=== PATIENT | female | born 1950 | race Caucasian/White ===

== ENCOUNTER 2016-10-24 10:37 | Observation (INO) | payer MEDICARE, OTHER ==
[~2016-10-24] VITALS: Ht 172.7 cm; Wt 112.1 kg
[~2016-10-24 10:37] MED LIST: ACET325T51 PO; ASCO250T7 PO; CYAN500 PO; FURO40TA4 PO; GLPZ5T PO; HYDR-656 PO; LACT10SO27 PO; MAGN400T4 PO; METF1000 PO; METO5TAB5 PO; MULT1CAP33 PO; OMEP20CA11 PO; POTA20TA16 PO; RIFA550T3 PO; SPIR100T3 PO
[2016-10-24 10:41] VITALS: BP 115/60; PULSE 87; RESP 22; O2SAT 99
--- NOTE | 2016-10-24 11:04 | ED.REPORT ---
HPI-General Illness Date of Service Oct 24, 2016 ED Provider: Ethan Patton MD The patient is a 66 year old female with history of pancytopenia, hepatic encephalopathy, obesity, cirrhosis, gastric antral venous ectasia with associated chronic GI bleeding, s/p bowel resection, diabetes mellitus, hypertension, who presents to the emergency department complaining of dizziness that began this morning. The patient states that this is one of her "trigger points" that tells her to come to the hospital. Her family states that her skin is a different color than normal. She denies bloody/tarry stools, hematemesis, diarrhea, vomiting, nausea, chills, fever, chest pain or shortness of breath. Her gastric antral venous ectasia is not manageable with TIP, failed octreotide treatment, the only treatment that she gets is periodic blood transfusions. Her warehouse associate is Dr. Levin. Nursing Notes Stated Complaint: DIZZY,SOB Chief Complaint: General Complaint Nursing Notes Reviewed: Yes Allergies: Coded Allergies: bacitracin (Verified Allergy, Unknown, UNKNOWN, 07/02/16) TAPE (Verified Adverse Reaction, Severe, ITCHING, 07/02/16) latex (Verified Adverse Reaction, Severe, SKIN REACTION/ITCHING, 07/02/16) Scheduled Ascorbic Acid (Vitamin C) 250 Mg Tab.chew 250 MG PO DAILY Cyanocobalamin (Vitamin B12) 500 Mcg Tablet 1,000 MCG PO DAILY Furosemide (Furosemide) 40 Mg Tablet 40 MG PO DAILY Glipizide (Glipizide) 5 Mg Tablet 5 MG PO DAILY Lactulose (Lactulose) 10 Gm/15 Ml Solution 15 GM PO prn Magnesium Oxide (Magnesium Oxide) 400 Mg Tablet 400 MG PO BID Metformin (Glucophage) 1,000 Mg Tablet 1,000 MG PO BID Metolazone (Metolazone) 5 Mg Tablet 5 MG PO DAILY Multivitamin (Multivitamins) 1 Each Capsule 1 EACH PO DAILY Omeprazole (Omeprazole) 20 Mg Capsule.dr 20 MG PO BID Potassium Chloride (Potassium Chloride) 20 Meq Tab.er.prt 20 MEQ PO DAILY TAKE WITH FOOD Rifaximin (Xifaxan) 550 Mg Tablet 550 MG PO BID Spironolactone (Spironolactone) 100 Mg Tablet 100 MG PO DAILY Scheduled PRN Acetaminophen (Acetaminophen) 325 Mg Tablet 325 MG PO Q4H PRN PRN For Pain hydrOXYzine Hcl (HydrOXYzine Hcl) 25 Mg Tablet 25 MG PO TID PRN PRN For Itching General Time Seen by MD: 11:03 Chief Complaint Dizziness Hx Obtained From: Patient Arrived By: Walk-in Sudden in Onset?: Yes Onset Occurred: 5 - 8 hours ago Symptom Duration: Since onset Severity: Current: No pain currently Severity: Maximum: No pain Recent Healthcare: No recent doctor visit, No recent hospitalization Similar Sx Previous: Yes Past Medical History Past Medical History Notes: PCP: Dr. Restrepo Water Attendant Dr Levin Past Medical History Anemia - recurrent transfusions (" two transfusions per week") Cirrhosis by hepatic steatosis Gastric Antral Vascular Ectasia (GAVE) Heart murmur Pancytopenia Obstructive sleep apnea Hepatic encephalopathy Reports: Diabetes mellitus, Hypertension Past Surgical History Deviated septum repair TIPS procedure D&C for polyp EGD 04/27/2015 revealed grade 1 esophageal varices, gastropathy, gastric antralvenous ectasia, Colonoscopy 04/27/2015 revealed: Colon polyps, diverticulosis, hemorrhoids with repeat colonoscopy in 3 years recommended liver stent Reports: Tonsillectomy Family History Noncontributory Smoking History Never Smoker Social History Alcohol Use: Denies alcohol use Drug Use: Denies drug use Other Social History: Good social support, Local resident Ambulatory Status Independent Review of Systems +pallor Full Review of Systems Constitutional: Reports: Fatigue, Weakness - generalized, Denies: Chills, Fever Respiratory: Denies: Non-productive cough, Shortness of breath Cardiovascular: Denies: Chest pain GI: Denies: Abdominal pain, Bloody/tarry stool, Diarrhea, Hematemesis, Hematochezia, Melena, Nausea, Vomiting Female: Denies: Hematuria Neurologic: Reports: Dizziness, Lightheaded, Spinning sensation Complete sys rev & neg: except as marked. Physical Exam Vital Signs Vital Signs Date Time Temp Pulse Resp B/P Pulse Ox O2 Delivery O2 Flow Rate FiO2 10/24/16 10:41 36.1 87 22 115/60 99 Initial VS: Reviewed ENT: Mucous membranes moist, Conjunctiva normal, No scleral icterus Neck: Supple, Non-tender, Full range of motion Respiratory: Breath sounds normal, Clear to auscultation, No respiratory distress Abdomen / GI: Soft, Non-tender, No guarding, No rebound, No distention Lymphatic: No lymphadenopathy Extremities: Vascular intact, Neuro intact, No swelling, No tenderness Skin: Warm, Dry, No cyanosis Neurologic: Alert, Oriented, Nonfocal Psychiatric: Mood/affect normal, Behavior normal, Normal thought content General/Constitutional: Awake, Alert Appearance / Presentation: Positive: Pale Head / Eyes: Normocephalic, PERRL, EOMI Conjunctiva / Sclera: Positive: Pallor Cardiovascular: Heart rate NL, Regular rhythm Heart Sounds / Murmur: Positive: Systolic murmur present.. (III/) Rectum / Perineum: Atraumatic, No gross blood Rectal for Blood: Positive: Blood - occult heme + Lakisha RN chaperoned the exam. No stool in the rectal vault. Interpretation & Diagnostics Lab Results Interpretation Result Diagram: 10/24/16 1235 10/24/16 1235 Test 10/24/16 12:35 White Blood Count 2.8th/mm3 (3.8-10.1) Red Blood Count 2.50mil/mm3 (3.90-5.20) Hemoglobin 6.3g/dL (12.0-15.6) Hematocrit 20.5% (35.0-46.0) Mean Corpuscular Volume 82.0fL (81-100) Mean Corpuscular Hemoglobin 25.2pg (27.0-35.0) Mean Corpuscular Hemoglobin Concent 30.7% (32.0-37.0) Red Cell Distribution Width 16.8% (12.3-15.4) Platelet Count 80bil/L (150-400) Neutrophils (%) (Auto) 79.7% (40-74) Lymphocytes (%) (Auto) 8.3% (14-46) Monocytes (%) (Auto) 9.4% (4-12) Eosinophils (%) (Auto) 1.8% (0-5) Basophils (%) (Auto) 0.4% (0-3) Prothrombin Time 11.8sec (8.1-12.5) Prothromb Time International Ratio 1.10ratio Sodium Level 129mEq/L (134-144) Potassium Level 4.3mEq/L (3.5-5.2) Chloride Level 94mEq/L (97-108) Carbon Dioxide Level 22mmol/L (18-29) Blood Urea Nitrogen 21mg/dL (8-27) Creatinine 0.81mg/dL (0.57-1.00) Estimat Glomerular Filtration Rate 102mL/min (>59) Glucose Level 625mg/dL (60-99) Calcium Level 9.3mg/dL (8.5-10.1) Total Bilirubin 0.7mg/dL (0.0-1.2) Aspartate Amino Transf (AST/SGOT) 16U/L (0-50) Alanine Aminotransferase (ALT/SGPT) 17U/L (0-32) Alkaline Phosphatase 133U/L (25-165) Ammonia 144ug/dL (18-53) Total Protein 5.8g/dL (6.4-8.4) Albumin 3.0g/dL (3.4-5.0) Re-Eval/Medical Decision Source of Hx: Old records, Family Time of Eval: 13:25 Re-Evaluation/Progress Note: Discussed lab results. Completed rectal exam. Time of Eval: 13:28 Re-Evaluation/Progress Note: Discussed need for admission. All questions were addressed. Time of Eval: 13:39 Re-Evaluation/Progress Note: Discussed blood sugar level results and what her normal treatment would be. Consultation #1: Referral / Consult Name: Johnny Bautista MD Call Returned at: 13:30 Supervisor Paper Machine: Will see patient Note: Spoke with the on-call dairy cattle farmer. Consultation #2: Referral / Consult Name: César Guy MD Consulted With: Hospitalist Requested Call at: 13:39 Call Returned at: 14:43 Supervisor Paper Machine: Will see patient, Agrees with eval, Agrees with plan, Accepts admit Counseled Regarding: Diagnosis, Lab results, Need for admission Discharge & Departure Primary Impression: Symptomatic anemia Additional Impression: Hyperglycemia Disposition: ADMITTED TO HOSPITAL Discharge Condition All VS Reviewed: Yes Condition: Stable Referrals: Zechariah Restrepo MD (PCP) Kaylynn Attestation Portions of this note were transcribed by Viviana Hsieh. I, Dr. Ethan Patton personally performed the history, physical exam and medical decision-making; I reviewed and confirmed the accuracy of the information in the transcribed note. Signed by: Kaylynn White, 10/24/2016 and [id number]. copies to: Zechariah Restrepo MD, Kirk H MD Oct 24, 2016 11:04 Viviana Hsieh Oct 24, 2016 11:12
[2016-10-24 12:45] LABS: BASOPHILS % (AUTO) 0.4 % (0-3); EOSINOPHILS % (AUTO) 1.8 % (0-5); MONOCYTES % (AUTO) 9.4 % (4-12); Mean Corpuscular Hemoglobin 25.2 pg (27.0-35.0); NEUTROPHILS % (AUTO) 79.7 % (40-74); Platelet Count 80 bil/L (150-400)
[2016-10-24 13:09] LABS: INR 1.1 ratio
[2016-10-24] MEDS ORDERED: Insulin Human REGular 300 Unit/3 mL Inj SUBQ ONE (13:40)
[2016-10-24] MEDS ORDERED: 0.9% Sodium Chloride 1,000 ML IV ONE (13:40)
[2016-10-24] MEDS: 0.9% Sodium Chloride 1,000 ML IV SCH (14:48)
[2016-10-24] MEDS ORDERED: Alum-Mag Hydrox-Simeth 30 mL Suspension PO PRN (14:50)
[2016-10-24] MEDS ORDERED: Ondansetron 2 mg/mL 2 mL Inj IVPUSH PRN (14:50)
[2016-10-24 15:35] VITALS: BP 106/65; PULSE 89; RESP 18; O2SAT 100
[2016-10-24] MEDS ORDERED: 0.9% Sodium Chloride 250 ML IV SCH (15:50)
[2016-10-24] MEDS ORDERED: Glucose 40% Oral Gel 15 Gm Tube PO PRN (16:00)
[2016-10-24 17:01] VITALS: BP 119/62; PULSE 90; RESP 20
--- NOTE | 2016-10-24 17:01 | PCM.HPMED ---
Subjective Date of Service Oct 24, 2016 Primary Provider: Admitting Physician: César Guy MD Primary Care Physician: Zechariah Restrepo MD Attending Physician: César Guy MD Chief Complaint: dizziness, shortness of breath History of Present Illness: 66 year old female with history of pancytopenia, hepatic encephalopathy, obesity , cirrhosis, gastric antral venous ectasia with associated chronic GI bleeding, s/p bowel resection, diabetes mellitus, hypertension presented to ED with c/o dizziness and shortness of breath. She denies bloody/tarry stools, hematemesis, diarrhea, vomiting, nausea, chills, fever, chest pain. She is following with Dr Levin. Her gastric antral venous ectasia is not manageable with TIPS and she also failed octreotide treatment. She is currently getting blood transfusion (1 - 2 units every 2 weeks). She has scheduled Endoscopy at [facility] on 10/26. Pt seen and examined bed side. She is c/o shortness of breath and mild dizziness. States that she fells little better now. In ED, her vital signs were within normal range. Labs shows significant anemia (Hct of 20.5). Allergies Coded Allergies: bacitracin (Verified Allergy, Unknown, UNKNOWN, 10/24/16) TAPE (Verified Adverse Reaction, Severe, ITCHING, 10/24/16) latex (Verified Adverse Reaction, Severe, SKIN REACTION/ITCHING, 10/24/16) PMH Anemia - recurrent blood transfusions Cirrhosis by hepatic steatosis Gastric Antral Vascular Ectasia (GAVE) Heart murmur Pancytopenia Obstructive sleep apnea Hepatic encephalopathy Diabetes mellitus, Hypertension Surgical History Deviated septum repair TIPS procedure D&C for polyp EGD 04/27/2015 revealed grade 1 esophageal varices, gastropathy, gastric antralvenous ectasia, Colonoscopy 04/27/2015 revealed: Colon polyps, diverticulosis, hemorrhoids with repeat colonoscopy in 3 years recommended liver stent Tonsillectomy Social History Hx Alcohol Use: No Hx Substance Use: No Hx Tobacco Use: No Smoking Status: Never Smoker Exam Vital Signs Vital Sign - Last Date Time Temp Pulse Resp B/P Pulse Ox O2 Delivery O2 Flow Rate FiO2 10/24/16 15:35 36.6 89 18 106/65 100 Room Air Exam General/Constitutional: Awake, Alert Appearance / Presentation: Positive: Pale Head / Eyes: Normocephalic, PERRL, Pale conjunctiva ENT: Mucous membranes moist,mild scleral icterus Neck: Supple, Non-tender, Cardiovascular: Heart rate NL, Regular rhythm Respiratory: Breath sounds normal, Clear to auscultation, No respiratory distress Abdomen / GI: Soft, Non-tender, No guarding, No rebound, No distention Lymphatic: No lymphadenopathy Extremities: Vascular intact, Neuro intact, +1 pitting edema, No tenderness Skin: Warm, Dry, No cyanosis Neurologic: Alert, Oriented, Nonfocal Psychiatric: Mood/affect normal, Behavior normal, Normal thought content Lab and Diagnostics Result Diagram: 10/24/16 1235 10/24/16 1235 Assessment & Plan 66 year old female with pancytopenia, hepatic encephalopathy, obesity, cirrhosis, gastric antral venous ectasia presented with dizziness and shortness of breath found to have severe anemia. Anemia - 2/2 gastric antral venous ectasia - Will transfuse 2 units of PRBC - She is following with flight attendant/inflight manager at [facility]. She has scheduled Endoscopy on 10/26/[address] [facility] - GI was consulted from ED. Diabetes - Glucose was elevated to 625 - She received 10 units of regular insulin - Will resume glipizide and Metformin - Will place on Insulin sliding scale Cirrhosis / Hepatic encephalopathy - Likely due to HACKETT - Ammonia was elevated to 144. She is clinically stable and has no symptoms of hepatic encephalopathy. - Will resume Lactulose and Rifaximin - Also on Lasix 40 mg and Spironolactone 100 mg daily, will continue Hyponatremia - Na: 129 - Likely Pseudohyponatremia due to significant hyperglycemia - Corrected Na is 137 mg / dl Code: Full code GI ppx: Pantoprazole DVT ppx: Heparin Status: To be admitted as observation as likely discharge in less than two days, Pain Evaluation: Adequate Pain Control GI Prophylaxis: Proton Pump Inhibitor VTE Prophylaxis: Sub-Q Heparin (Unfractionated) Resuscitation Status: CPR: Attempt Resuscitation César Guy MD Oct 24, 2016 17:01
[2016-10-24 17:35] VITALS: BP 111/55; PULSE 92; RESP 20
[2016-10-24] MEDS: Insulin LISPRO 300 Unit/3 mL Inj SUBQ SCH ×2 (17:48→21:58)
--- NOTE | 2016-10-24 18:11 | NUR ---
Admit Pt admitted to [facility] unit from ED. Arrived to wrong room of 1015, pt transferred over in bed from 1015 to originally assigned 1026 - in 1026 at 1533. A&Ox3, SULLIVAN, VSS, No Pain, Port accessed and infusing NS, Personal belongings and Olga (POA) present in room. Per pt had not eaten all day, sitting at EOB with late lunch. Hospitalist notified of pt arrival and that pt wanting to dc post blood transfusion. Requesting to be seen. Spoke with Dr. Bautista on telephone - stated he will see pt in AM. At 1715, pt first unit blood hanging. Pt stated no previous reactions to blood (has been getting weekly blood transfusions for GAVE). Per hospitalist, transfuse 2 units - recheck labs and if Hgb<8, transfuse third unit. Pt upright in bed. Oriented to room and call light. Care continues. Addendum: 10/24/16 at 1932 by ANDREY WOOD RN Physical assessment performed, not charted. Pt with gen dry skin, states feeling itchy all the time. Heart murmur noted. Denies chest pain, SOB at this time, n/v/abd pain - tolerating PO, states off and on flatus, last bm BOBBIN HAULER stated to be 'firmer than id like'. L>R LE edema. second toe on right with cushion around it - pt stated it gets squished in her shoes otherwise, 'works better than the expensive shoe inserts you get.'
[2016-10-24 19:19] VITALS: BP 120/64; PULSE 96; RESP 20
[2016-10-24 20:21] VITALS: BP 115/69; PULSE 99; RESP 17; O2SAT 99
[2016-10-24] MEDS: Lactulose 20 Gm/30 mL 30 mL Syrup PO SCH (21:14)
[2016-10-25] MEDS: Heparin 5,000 Unit/mL Inj SUBQ SCH ×2 (00:39→08:30)
[2016-10-25 00:47] VITALS: BP 120/55; PULSE 90; RESP 14
[2016-10-25 02:02] LABS: BASOPHILS % (AUTO) 0.3 % (0-3); EOSINOPHILS % (AUTO) 3.9 % (0-5); MONOCYTES % (AUTO) 12.6 % (4-12); Mean Corpuscular Hemoglobin 26.5 pg (27.0-35.0); Mean Corpuscular Volume 83.8 fL (81-100); NEUTROPHILS % (AUTO) 68.5 % (40-74); Platelet Count 86 bil/L (150-400)
[2016-10-25] MEDS: 0.9% Sodium Chloride 1,000 ML IV SCH ×2 (02:30→10:48)
[2016-10-25 04:36] VITALS: BP 130/72; PULSE 96; RESP 18; O2SAT 98
--- NOTE | 2016-10-25 05:11 | NUR ---
H&H Results Dr De La Rosa Paged regarding results of .12/14.8 No new orders at this time.
[2016-10-25] MEDS ORDERED: Pantoprazole 20 mg ER24 Tablet PO SCH (07:30)
[2016-10-25] MEDS: Insulin LISPRO 300 Unit/3 mL Inj SUBQ SCH ×2 (07:51→12:01)
--- NOTE | 2016-10-25 07:51 | NUR ---
Dizzyness Patient states she still has some dizzyness when ambulating. Patient seems stable on feet with stand by assist. Patient A&Ox3. Patient states she has no pain.
[2016-10-25] MEDS ORDERED: Potassium Chloride 20 mEq SR Tablet PO SCH (08:00)
[2016-10-25] MEDS ORDERED: Ascorbic Acid 500 mg Tablet PO SCH (08:30)
--- NOTE | 2016-10-25 09:46 | CONS ---
[address] [address] CONSULTATION REPORT PATIENT: CHICHO NORTON : 1950 MR#: [id number] ADMIT: 10/24/2016 JOB ID: [id number] DATE OF SERVICE: 10/25/2016 REASON FOR CONSULTATION: Cirrhosis, anemia. 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 The patient was found in the emergency department to have a hemoglobin of 6.3. The patient was transfused 1 unit of packed red blood cells, and now is 7.2. The patient also was admitted complaining of shortness of breath and slight dizziness upon admission in the ED. In the past, the patient states that she had an EGD and colonoscopy done on April 27, 2015, revealing grade 1 esophageal varices, gastropathy and gastric antral vascular ectasia. Colonoscopy revealed colon polyps, diverticulosis, hemorrhoids, and recommend repeat colonoscopy in three years. The patient denies family history of colon cancer, inflammatory bowel disease, or celiac disease. The patient was guaiac-negative in the emergency department. The patient has a history of getting blood transfusions, 1-2 units every two weeks, and scheduled to have endoscopy over at [facility] tomorrow, on October 26. The patient denies rectal bleeding, nausea, vomiting, hematemesis, abdominal pain, change in bowel habits, or unintentional weight loss. The patient is followed by Dr. Levin over at [facility]. PAST MEDICAL HISTORY: As stated above. PAST SURGERIES: As stated above. MEDICATIONS AN OUTPATIENT: 1. Vitamin C. 2. Vitamin B12. 3. Lasix. 4. Glipizide. 5. Lactulose. 6. Magnesium oxide. 7. Glucophage. 8. Metolazone. 9. Multivitamin. 10. Omeprazole. 11. Potassium chloride. 12. Xifaxan 550 mg p.o. b.i.d. 13. Spironolactone 100 mg by mouth once a day. 14. Lasix 40 mg by mouth once a day. ALLERGIES: BACITRACIN, TAPE, LATEX. SOCIAL HISTORY: Denies smoking, alcohol, or drugs. FAMILY HISTORY: Negative for colon cancer. REVIEW OF SYSTEMS: The patient denies headache, blurred vision, nausea, vomiting, chest pain, shortness of breath, abdominal pain, skin rash, joint pain. PHYSICAL EXAMINATION: Vital signs upon presentation: Temperature 36.6, pulse of 96, respiratory rate 18, blood pressure 130/72, satting 98% on room air. General: She has had no scars. Anicteric. Throat supple. Lungs: Clear to auscultation bilaterally. Cardiovascular: Regular rhythm and rate. Abdomen: Soft, nondistended, nontender. Normal bowel sounds. Extremities: No cyanosis, clubbing or edema. LABORATORIES: White count 3.9, hemoglobin 7.2, hematocrit 22, MCV 83, platelet count of 86. Sodium 136, potassium 4.0, chloride 100, bicarb 24, BUN 22, creatinine 0.7, glucose of 224, calcium 8.9. Total bili 1.2, AST 17, ALT 17, alk phos 95. Ammonia 144. Total protein 5.1, albumin 3.0. PT 11.8, INR 1.1. ASSESSMENT AND PLAN: This is a pleasant, 66-year-old, female, with history of nonalcoholic steatohepatitis (HACKETT) cirrhosis, history of gastric antral vascular ectasia associated with chronic gastrointestinal bleed, history of hepatic encephalopathy, obstructive sleep apnea, diabetes, hypertension, chronic anemia, status post transjugular intrahepatic portosystemic shunt (TIPS) procedure, status post EGD and colonoscopy on April 27, revealing grade 1 esophageal varices, gastropathy and gastric antral vascular ectasia (GAVE), colon polyps, diverticulosis, internal hemorrhoids, who presents for anemia. I have offered the patient to have an EGD and colonoscopy while in-house here, and the patient has had her continuity care at [facility] and has already been scheduled for endoscopy for tomorrow. The patient wishes to a have continued continuity of care at [facility] and wishes to keep her endoscopy appointment at that point in time. RECOMMENDATIONS: 1. The patient to follow up at [facility] for endoscopy scheduled for tomorrow. 2. Continue lactulose and xifaxan, titrate to three bowel movements per day. 3. continue lasix, aldactone 4. transfuse prbc per hospitalist team will sign off MTDD
[2016-10-25] MEDS: Lactulose 20 Gm/30 mL 30 mL Syrup PO SCH (10:07)
--- NOTE | 2016-10-25 11:34 | PCM.DIMED ---
Discharge Instructions Date of Service Oct 25, 2016 Dates of Hospitalization Oct 24, 2016 at 15:12 Discharge Diagnosis Discharge Diagnosis Acute on chronic anemia Diet Low fat, Low Sodium Activity Limited until seen by PCP Call your provider Fever or Chills, Shortness of breath, Bleeding, Excessive diarrhea Patient Instructions Follow-up plan Follow-up with her nursing teacher tomorrow for EGD. Follow-up with PCP in: 1 week Greg Garcia DO Oct 25, 2016 11:34
--- NOTE | 2016-10-25 12:12 | NUR ---
Social Work Initial Assessment/Discharge D: EMR reviewed. See initial assessment. Pt is a 66Y old female [place] for Severe Anemia. Insurance is Medicare and [employer] [facility]. PCP is Dr. Zechariah Restrepo. SW met with Pt at bedside, SW role explained. Pt lives home alone in [place]. Pt reports good friend supports. Pt uses a walker at baseline. Pt has both HH and SNF history. Pt has a scope procedure scheduled at tomorrow and is anxious to discharge home. No discharge needs identified by Pt. Pt is medically stable and discharging home via POV. A: Pt who is independent at baseline P: No discharge needs identified by Pt. Pt is medically stable and discharging home via POV. MARC Waller Addendum: 10/25/16 at 1219 by SAGRARIO CANTU Amended: Links added.
--- NOTE | 2016-10-25 13:31 | NUR ---
Discharge Pt received 2 units of packed RBCs 10/24/16. H & H today was 7.2 and 22.8. Pt does not have any concerns about being discharged even though her blood counts are low; she has chronic anemia and states these low numbers are normal for her. IV therapy discontinued access to pt's port. Pt discharged to home via private vehicle with friend. VSS. No complaints of pain. Discharge and follow up instructions provided and pt expressed understanding.
--- NOTE | 2016-10-25 20:47 | PCM.DC.MED ---
Discharge Summary Date of Service Oct 25, 2016 Dates of Hospitalization Date of Hospital Admission Oct 24, 2016 at 15:12 Date of Discharge: Oct 25, 2016 Providers: Admitting Physician: César Guy MD Primary Care Physician: Zechariah Restrepo MD Attending Physician: César Guy MD Diagnosis at Time of Discharge Diagnosis at Time of Discharge Acute on chronic anemia Brief History 66 year old female with history of pancytopenia, hepatic encephalopathy, obesity , cirrhosis, gastric antral venous ectasia with associated chronic GI bleeding, s/p bowel resection, diabetes mellitus, hypertension presented to ED with c/o dizziness and shortness of breath. She denies bloody/tarry stools, hematemesis, diarrhea, vomiting, nausea, chills, fever, chest pain. She is following with Dr Levin. Her gastric antral venous ectasia is not manageable with TIPS and she also failed octreotide treatment. She is currently getting blood transfusion (1 - 2 units every 2 weeks). She has scheduled Endoscopy at [facility] on 10/26. Pt seen and examined bed side. She is c/o shortness of breath and mild dizziness. States that she fells little better now. In ED, her vital signs were within normal range. Labs shows significant anemia (Hct of 20.5). Hospital Course 66 year old female with pancytopenia, hepatic encephalopathy, obesity, cirrhosis, gastric antral venous ectasia presented with dizziness and shortness of breath found to have severe anemia. 2 units of red blood cells were transfused, she was observed overnight and did very well. She had an appointment scheduled with her topline beading machine tender for EGD on 10/26/2016. She was discharged home in stable condition and will need follow-up for her EGD tomorrow. She will also need follow-up with her PCP within one week, sooner if her condition worsens in anyway. To note, she did receive IV fluids overnight which reflected in a less than optimal elevation of her hemoglobin due to dilutional effects. She had no source of bleeding. Delineated problem list as below. Anemia - 2/2 gastric antral venous ectasia - Will transfuse 2 units of PRBC - She is following with topline beading machine tender at [facility]. She has scheduled Endoscopy on 10/26/2016 at [facility] - GI was consulted from ED. Diabetes - Glucose was elevated to 625 on admission. Much improved at discharge. - She received 10 units of regular insulin - Will resume glipizide and Metformin - Will place on Insulin sliding scale Cirrhosis / Hepatic encephalopathy - Likely due to HACKETT - Ammonia was elevated to 144. She is clinically stable and has no symptoms of hepatic encephalopathy. - Will resume Lactulose and Rifaximin - Also on Lasix 40 mg and Spironolactone 100 mg daily, will continue Hyponatremia - Na: 129, resolved to 136 - Likely Pseudohyponatremia due to significant hyperglycemia - Corrected Na is 137 mg / dl Exam Vital Signs (Last) Date Time Temp Pulse Resp B/P Pulse Ox O2 Delivery O2 Flow Rate FiO2 10/25/16 04:36 36.6 96 18 130/72 98 Room Air Test 10/24/16 12:35 10/25/16 01:45 Prothrombin Time 11.8sec (8.1-12.5) Prothromb Time International Ratio 1.10ratio Ammonia 144ug/dL (18-53) White Blood Count 3.9th/mm3 (3.8-10.1) Red Blood Count 2.72mil/mm3 (3.90-5.20) Hemoglobin 7.2g/dL (12.0-15.6) Hematocrit 22.8% (35.0-46.0) Mean Corpuscular Volume 83.8fL (81-100) Mean Corpuscular Hemoglobin 26.5pg (27.0-35.0) Mean Corpuscular Hemoglobin Concent 31.6% (32.0-37.0) Red Cell Distribution Width 16.6% (12.3-15.4) Platelet Count 86bil/L (150-400) Neutrophils (%) (Auto) 68.5% (40-74) Lymphocytes (%) (Auto) 14.7% (14-46) Monocytes (%) (Auto) 12.6% (4-12) Eosinophils (%) (Auto) 3.9% (0-5) Basophils (%) (Auto) 0.3% (0-3) Sodium Level 136mEq/L (134-144) Potassium Level 4.0mEq/L (3.5-5.2) Chloride Level 100mEq/L (97-108) Carbon Dioxide Level 24mmol/L (18-29) Blood Urea Nitrogen 22mg/dL (8-27) Creatinine 0.76mg/dL (0.57-1.00) Estimat Glomerular Filtration Rate 109mL/min (>59) Glucose Level 224mg/dL (60-99) Calcium Level 8.9mg/dL (8.5-10.1) Total Bilirubin 1.2mg/dL (0.0-1.2) Aspartate Amino Transf (AST/SGOT) 17U/L (0-50) Alanine Aminotransferase (ALT/SGPT) 17U/L (0-32) Alkaline Phosphatase 95U/L (25-165) Total Protein 5.1g/dL (6.4-8.4) Albumin 3.0g/dL (3.4-5.0) Discharge Medications Discharge Medications Ascorbic Acid (Vitamin C) 250 Mg Tab.chew 250 MG PO DAILY (Reported) Cyanocobalamin (Vitamin B12) 500 Mcg Tablet 1,000 MCG PO DAILY (Reported) Furosemide (Furosemide) 40 Mg Tablet 40 MG PO DAILY (Reported) Glipizide (Glipizide) 5 Mg Tablet 5 MG PO DAILY (Reported) Magnesium Oxide (Magnesium Oxide) 400 Mg Tablet 400 MG PO BID (Reported) Metformin (Glucophage) 1,000 Mg Tablet 1,000 MG PO BID (Reported) Metolazone (Metolazone) 5 Mg Tablet 5 MG PO DAILY Prescribed by: GREG GARCIA DO Multivitamin (Multivitamins) 1 Each Capsule 1 EACH PO DAILY (Reported) Omeprazole (Omeprazole) 20 Mg Capsule.dr 20 MG PO QAM (Reported) Potassium Chloride (Potassium Chloride) 20 Meq Tab.er.prt 20 MEQ PO DAILY TAKE WITH FOOD Prescribed by: JEREMÍAS JOEL DO Rifaximin (Xifaxan) 550 Mg Tablet 550 MG PO BID (Reported) Spironolactone (Spironolactone) 100 Mg Tablet 100 MG PO DAILY (Reported) As needed Acetaminophen (Acetaminophen) 325 Mg Tablet 325 MG PO Q4H PRN PRN For Pain ( Reported) Lactulose (Lactulose) 10 Gm/15 Ml Solution 15-20 ML PO DAILY PRN PRN For Constipation (Reported) hydrOXYzine Hcl (HydrOXYzine Hcl) 25 Mg Tablet 25 MG PO TID PRN PRN For Itching (Reported) Followup Plan Follow-up plan Follow-up with her topline beading machine tender tomorrow for EGD. Discharge Diet: Low fat, Low Sodium Discharge Activity: Limited until seen by PCP Follow-up with PCP in: 1 week Time spent 35 minutes Greg Garcia DO Oct 25, 2016 20:47
[2017-02-03] MEDS ORDERED: RIFA200T7 PO (17:30)
[2017-02-03] MEDS ORDERED: METO5TAB5 PO (17:30)
[2017-02-13] MEDS ORDERED: GABA-500 PO ×2 (09:27)
[2017-03-28] MEDS ORDERED: INSU3INS3 SUBQ (08:51)
== END 2016-10-25 13:31 | disposition home or self-care (01) ==
LOC: SED 10:37 → OSC 15:12 → INTOOBSV 15:12 → OSC 15:22
PROVIDERS: ADMIT Internal Medicine; ATTEND Internal Medicine
DX: D50.0 Iron deficiency anemia secondary to blood loss (chronic) (principal); E11.9 Type 2 diabetes mellitus without complications; K74.60 Unspecified cirrhosis of liver; K75.81 Nonalcoholic steatohepatitis (NASH); K31.811 Angiodysplasia of stomach and duodenum with bleeding; I10 Essential (primary) hypertension; G47.33 Obstructive sleep apnea (adult) (pediatric); D61.818 Other pancytopenia; R01.1 Cardiac murmur, unspecified; E66.9 Obesity, unspecified; Z79.4 Long term (current) use of insulin; Z79.84 Long term (current) use of oral hypoglycemic drugs
CPT/HCPCS: 36415; 80053; 82140; 85025; 85610; 86922; 96372; 99285; G0378; J1644; J1815; J7030; J7050

== ENCOUNTER 2017-02-06 14:03 | Day surgery (SDC) | payer MEDICARE, OTHER ==
[~2017-02-06] VITALS: Ht 172.7 cm; Wt 108.9 kg
[~2017-02-06 14:03] MED LIST changes: -ACET325T51 PO; +Lactated Ringer's 1,000 ML IV ONE; -MAGN400T4 PO; +RIFA200T7 PO; -RIFA550T3 PO
[2017-02-06] MEDS ORDERED: Propofol 10,000 mCg/mL 20 mL Inj ONE (14:04)
[2017-02-06] MEDS ORDERED: fentaNYL-PF 50 mCg/mL 2 mL Inj ONE (14:04)
[2017-02-06 14:45] VITALS: BP 123/61; PULSE 74; RESP 16; O2SAT 97
[2017-02-06 15:41] VITALS: BP 92/57; PULSE 66; RESP 14; O2SAT 98
[2017-02-06 16:22] VITALS: BP 108/53; PULSE 70; RESP 14; O2SAT 96
--- NOTE | 2017-02-06 16:22 | PCM.HPANE ---
Patient Data Surgeon Admitting Provider: Attending Provider:Rome Rousseau MD Primary Care Physician:Zechariah Restrepo MD Other Provider:Caren Mckeoningham Anesthesia Reason for Visit Cirrhosis Of Liver Ht/WT & BMI Body Mass Index Allergies Coded Allergies: bacitracin (Verified Allergy, Unknown, UNKNOWN, 02/06/17) TAPE (Verified Adverse Reaction, Severe, ITCHING, 02/06/17) latex (Verified Adverse Reaction, Severe, SKIN REACTION/ITCHING, 02/06/17) Past Anesthesia History Anesthesia History: Positive for:: Anesthesia Reactions ("not recently" (10/24/16 )), Denies:: Abnormal Airway, Difficult Intubation, Fam Anesthesia Reaction, Fam Malignant Hypertherm, Malignant Hyperthermia Diabetes History Hx Diabetes?: Yes Type of Diabetes: Type II Glycemic Control: Oral Medication MRSA MRSA: No Medications Active Scripts Potassium Chloride 20 Meq Tab.er.prt20 Meq PO DAILY 30 Days Ref 0 TAKE WITH FOOD Prov:JEREMÍAS JOEL DO 05/21/16 Reported Medications Metolazone 5 Mg Tablet5 Mg PO DAILY #1 TABLET 02/03/17 Lactulose 10 Gm/15 Ml Solution4.5 Tbs PO BID 08/05/16 Omeprazole 20 Mg Capsule.dr20 Mg PO QAM Ref 0 07/22/16 Cyanocobalamin (Vitamin B12)500 Mcg Tablet1,000 Mcg PO DAILY 06/26/16 Spironolactone 100 Mg Tbxbyg36 Mg PO DAILY Ref 0 04/19/16 hydrOXYzine Hcl (HydrOXYzine Hcl)25 Mg Ligddg51 Mg PO DAILY PRN For Itching Ref 0 02/02/16 Furosemide 40 Mg Yhkiya92 Mg PO DAILY 12/30/15 Multivitamin (Multivitamins)1 Each Capsule1 Each PO DAILY 12/15/15 Ascorbic Acid (Vitamin C)250 Mg Tab.tfdj193 Mg PO DAILY #30 TABLET Ref 0 05/23/15 Metformin (Glucophage)1,000 Mg Tablet1,000 Mg PO BID Ref 0 05/23/15 Glipizide 5 Mg Tablet5 Mg PO BID 04/24/15 Discontinued Reported Medications Rifaximin (Xifaxan)200 Mg [id number] Mg PO TID #90 TABLET 02/03/17 Magnesium Oxide 400 Mg Vghqfa257 Mg PO BID 05/05/16 History History of ENT Problems?: Yes HEENT History: Positive for:: Cataracts (bilateral removed) Hearing Problem Sinus Problem (hx of deviated septum, s/p surgery) Denies:: Abnormal Airway Difficult Intubation Dysphagia Hx of Heart Problems?: Yes Cardiovascular History: Positive for:: Edema (lymphedema) Heart Murmur (ECHO 11/2015 EF 70-75% PROB "HIGH-FLOW" MURMUR) Hypertension Valvular Heart Disease (MILD MR) Denies:: AICD Atrial Fibrillation Cardiac Surgery Chest Pain Congestive Heart Failure Irregular Heartbeat Pacemaker Thrombophlebitis Hx of Respiratory Problem?: Yes Respiratory History: Positive for:: Dyspnea (ORTEGA) Denies:: Asthma COPD Chest Surgery Cough Emphysema Hemoptysis Pneumonia Tuberculosis Use of C-PAP Machine (CHERELLE+/DOES NOT USE CPAP SLEEP STUDY 04/2008) Hx Neurologic Problems?: Yes Neurological History: Positive for:: Dizziness (r/t anemia) Denies:: Alzheimer's Disease CVA Dementia Headaches Parkinson's Disease Seizures Hx of GI Problems?: Yes Gastrointestinal History: Positive for:: Cirrhosis (PROBABLY; ANASARCA) Diverticulitis Gastrointestinal Bleeding (r/t hepatosplenomegaly) Rectal Bleeding (Hx Colon Polyps) Denies:: Gastroesphageal Reflux Heartburn Hepatitis Hiatal Hernia Hx of Problems?: No Genitourinary History: Denies:: Kidney Stones Urinary Tract Infection Female Hx: Denies:: Currently (S/P D&C/POLYPECTOMY) Endometriosis Pelvic Inflammatory Problems with Breasts? Skin History: Positive for:: History Skin Disorders? (eczema, rosacea) Denies:: Pressure Ulcers Hx Musculoskeletal Problems?: No Musculoskeletal History: Positive for:: Back Injury (sciatica) Denies:: Joint Replacement Musculoskeletal Trauma Hx of Psycho/Social Problems?: Yes Psycho Social History: Positive for:: Anxiety Hx Depression Denies:: Bipolar Disorder Suicide Attempt Hx Surgeries?: Yes (deviated septum rpr, partial gastrectomy, ) Hx Any Other Health Problems?: Yes Other History: Positive for:: Cancer (GAVE) Hospitalization (Anemia, CIRRHOSIS) Denies:: Endocrine Disease Thyroid Disease History Blood Transfusions: Positive for:: Blood Transfusions Denies:: Blood Transfuse Reaction Hx Diabetes: Yes Hx Alcohol Use: NoHx Substance Use: No Smoking Status: Never Smoker Have You Smoked inLast 12 mo: No Stop/Bang Risk Assessment Category Category 1A: Patient has history of documented sleep apnea, and HAS NOT received any narcotic, sedative or anesthesia administration during this stay. Category 1B: Patient has history of documented sleep apnea, and HAS received any narcotic , sedative or anesthesia administration during this stay Category 2: Patient has SUSPECTED Obstructive Sleep Apnea, and HAS received any narcotic , sedative or anesthesia administration during this stay. Category 3: Patient has SUSPECTED Obstructive Sleep Apnea and HAS NOT received narcotic, sedative or anesthesia administration during this stay. Category 4: Outpatient in Procedural Areas with known sleep apnea or who screen positive for High Risk via the STOP/BANG questionnaire. Exam Exam General Appearance: Alert, Oriented X3, Cooperative, No Acute Distress HEENT/AIRWAY: MP 3 Lungs: Clear to Auscultation Heart: Exam Unremarkable Plan Impression Patient chart reviewed, patient interviewed and anesthestic plan with risks, benefits, and alternatives discussed, and informed consent obtained. NPO Status: [id number] applejuice ASA Physical Status: ASA3 Severe Disease (esld) Anesthetic Plan: MAC Bene/Risks/Altern/Consents: Yes HP Complete Prior to Induction: Yes Rigoberto Bobby MD Feb 06, 2017 14:41
--- NOTE | 2017-02-06 16:22 | PCM.ANEP2 ---
Post Anesthesia Evaluation ASA/CMS Post Anesthesia VS in Patient's Normal Range?: Yes Resp Stable; Airway Patent?: Yes CV Function & Hydration Stable: Yes Mental Status Recovered?: Yes Pain control Satisfactory?: Yes N/V Control Satisfactory?: Yes Rigoberto Bobby MD Feb 06, 2017 16:22
[2017-02-06 16:29] VITALS: BP 115/69; PULSE 73; RESP 16; O2SAT 98
[2017-02-06 16:38] VITALS: BP 130/63; PULSE 72; RESP 16; O2SAT 99
--- NOTE | 2017-02-07 01:44 | ENDO ---
[address] [address] ENDOSCOPY PROCEDURE PATIENT: CHICHO NORTON : 1950 MR#: [id number] ADMIT: 02/06/2017 JOB ID: [id number] PRIMARY PROVIDER: Zechariah Restrepo MD PROCEDURE: Esophagogastroduodenoscopy with APC ablation. INDICATIONS: A 67-year-old female with refractory GI bleeding secondary to gastric antral vascular ectasia, along with underlying portal hypertension. She ultimately has had a partial gastrectomy, but continues to have need for intermittent transfusion. Updated capsule endoscopy indicated there was evidence of some oozing of blood apparent in the stomach and even possibly in the first portion of the small bowel. EQUIPMENT: [id number]. SEDATION: Monitored anesthesia as provided by Dr. Rigoberto Bobby. COMPLICATIONS: None identified. PROCEDURE INFORMATION: After the risks and benefits were explained, written and verbal informed consent was obtained. The patient was brought into the endoscopy suite and placed into the left lateral decubitus position. Sedation was achieved as above. The scope introduced was introduced into the mouth through the bite block, and advanced under direct visualization through the oropharynx, esophagus, down into the stomach. I crossed the anastomosis, well into the small intestine. The scope was slowly withdrawn to carefully examine the mucosa for any defects or lesions. APC ablation x6 was pursued using a circumferential probe and gastric settings. The stomach was then decompressed, the scope removed from the patient who tolerated the procedure well. FINDINGS: 1. Esophagus: The patient had no significant variceal cushions. There was possibly grade 1 varices evident. These were fully flattened out with air insufflation. There was some minimal superficial vascularity at the level of the gastric cardia. No bleeding. No ulcers. No active esophagitis. 2. Stomach: Proximal stomach was devoid of any bleeding pathology including retroflexed views of the LES. In the residual antrum approaching the anastomosis, there were some scattered areas of vascular ectasia. Photographs were taken and we applied APC to six areas in the antrum. There were a couple of retained sutures at the anastomosis proper with some bland-based ulceration. There was no evidence of any active bleeding anywhere. Multiple photographs were taken. 3. anastomosis: This was patent. 4. Small bowel: I did not appreciate any active bleeding, nor any high-risk vascular angiodysplastic foci warranting treatment. Well downstream, the patient had a normal yellow-colored bilious retained fluid/debris. ENDOSCOPIC DIAGNOSES: 1. Patent anastomosis status post partial gastrectomy. 2. Minimal foreign body reaction at anastomosis secondary to retained sutures. 3. Very mild residual angiodysplastic lesions distal stomach, treated with APC x6. RECOMMENDATIONS: 1. Continue close follow up in Hematology Clinic with Dr. Levin. 2. Repeat EGD as needed.
[2017-02-13] MEDS ORDERED: GABA-500 PO ×2 (09:27)
[2017-03-28] MEDS ORDERED: INSU3INS3 SUBQ (08:51)
[2017-04-11] MEDS ORDERED: INSU100I13 SUBQ (09:12)
== END 2017-02-06 23:59 | disposition home or self-care (01) ==
LOC: END 14:03
PROVIDERS: ATTEND Internal Medicine Gastroenterology
DX: K31.819 Angiodysplasia of stomach and duodenum without bleeding (principal); K76.6 Portal hypertension; I85.10 Secondary esophageal varices without bleeding; K74.60 Unspecified cirrhosis of liver; E11.9 Type 2 diabetes mellitus without complications; D50.0 Iron deficiency anemia secondary to blood loss (chronic); Z79.84 Long term (current) use of oral hypoglycemic drugs
CPT/HCPCS: 43270; J3010; J7120

== ENCOUNTER 2017-03-14 14:39 | Emergency (ER) | payer MEDICARE ==
[~2017-03-14] VITALS: Ht 172.7 cm; Wt 109.1 kg
[~2017-03-14 14:39] MED LIST changes: +GABA-500 PO; -HYDR-656 PO; -Lactated Ringer's 1,000 ML IV ONE; -METO5TAB5 PO; -RIFA200T7 PO
[2017-03-14 14:52] VITALS: BP 114/78; PULSE 92; RESP 18; O2SAT 97
--- NOTE | 2017-03-14 15:52 | ED.REPORT ---
HPI-Dizziness / Weakness Date of Service March 14, 2017 ED Provider: Rome Dominguez MD A 67 year old female with a history of hypertension, diabetes mellitus, chronic anemia, cirrhosis by hepatic steatosis, gastric antral vascular ectasia s/p endoscopy (01/2017), hepatic encephalopathy, pancytopenia and CHERELLE presents to the ED complaining of intermittent episodes of dizziness that began this morning. She describes a spinning sensation during her episodes which occur with exertion and when sitting down. Patient reports similar episode of dizziness a few months ago due to a hyperglycemic episode. She also reports experiencing decreased appetite and soft bowel movements for the past few days. Patient was recently seen by Dr. Levin on 03/14 for her pancytopenia. She currently takes lactulose and has been taking as prescribed. Patient denies regular insulin use but has received it during previous admission for hyperglycemia. She states that her BS can regularly be in the 600's following a meal. Patient denies dysuria, fever, melena, or hematochezia. Nursing Notes Stated Complaint: DIZZY SPELLS ALL DAY Chief Complaint: General Complaint Nursing Notes Reviewed: Yes Allergies: Coded Allergies: bacitracin (Verified Allergy, Unknown, UNKNOWN, 02/06/17) TAPE (Verified Adverse Reaction, Severe, ITCHING, 02/06/17) latex (Verified Adverse Reaction, Severe, SKIN REACTION/ITCHING, 02/06/17) Scheduled Ascorbic Acid (Vitamin C) 250 Mg Tab.chew 250 MG PO DAILY Cyanocobalamin (Vitamin B12) 500 Mcg Tablet 1,000 MCG PO DAILY Furosemide (Furosemide) 40 Mg Tablet 40 MG PO DAILY Gabapentin (Gabapentin) 100 Mg Capsule 100 MG PO QAM Gabapentin (Gabapentin) 100 Mg Capsule 200 MG PO HS Glipizide (Glipizide) 5 Mg Tablet 5 MG PO BID Lactulose (Lactulose) 10 Gm/15 Ml Solution 30 ML PO BID Metformin (Glucophage) 1,000 Mg Tablet 1,000 MG PO BID Multivitamin (Multivitamins) 1 Each Capsule 1 EACH PO DAILY Omeprazole (Omeprazole) 20 Mg Capsule.dr 20 MG PO QAM Potassium Chloride (Potassium Chloride) 20 Meq Tab.er.prt 20 MEQ PO DAILY TAKE WITH FOOD Spironolactone (Spironolactone) 100 Mg Tablet 100 MG PO DAILY General Time Seen by MD: 15:51 Chief Complaint Dizzy Hx Obtained From: Patient Arrived By: Walk-in Onset Occurred: 9 - 12 hours ago Symptom Duration: Since onset Location: : No pain Associated with: Reports: Vertigo Pertinent Negative: Pt denies other symptoms Recent Healthcare: No recent doctor visit, No recent hospitalization Past Medical History Past Medical History Notes: PCP: Dr. Restrepo Beater Operator: Dr. Levin Past Medical History Anemia - recurrent transfusions (" two transfusions per week") Cirrhosis by hepatic steatosis Gastric Antral Vascular Ectasia (GAVE) Heart murmur Pancytopenia Obstructive sleep apnea Hepatic encephalopathy Reports: Diabetes mellitus, Hypertension Past Surgical History Deviated septum repair TIPS procedure D&C for polyp EGD 04/27/2015 revealed grade 1 esophageal varices, gastropathy, gastric antralvenous ectasia, Colonoscopy 04/27/2015 revealed: Colon polyps, diverticulosis, hemorrhoids with repeat colonoscopy in 3 years recommended liver stent Reports: Tonsillectomy Family History Noncontributory Smoking History Never Smoker Social History Alcohol Use: Denies alcohol use Drug Use: Denies drug use Other Social History: Good social support, Local resident Ambulatory Status Independent Review of Systems Decreased appetite Constitutional: Denies: Chills, Fever GI: Reports: Diarrhea (borderline diarrhea), Denies: Bloody/tarry stool, Hematochezia, Melena Neurologic: Reports: Dizziness Complete sys rev & neg: except as marked. Physical Exam Initial Vital Signs Vital Signs (First) Date Time Temp Pulse Resp B/P Pulse Ox O2 Delivery O2 Flow Rate FiO2 03/14/17 14:52 36.5 92 18 114/78 97 03/14/17 17:04 Room Air Initial VS: Reviewed Neck: Supple, Non-tender, Full range of motion Extremities: Vascular intact, Neuro intact, No swelling, No tenderness Skin: Warm, Dry, No cyanosis Psychiatric: Mood/affect normal, Behavior normal, Normal thought content General/Constitutional: Awake, Alert, No acute distress Head / Eyes: Atraumatic, Normocephalic, PERRL, EOMI, No nystagmus Respiratory / Chest: Atraumatic, Breath sounds NL, Breath sounds = bilat, No respiratory distress Cardiovascular: Heart rate NL, Regular rhythm, No gallop, No rubs Heart Sounds / Murmur: Positive: Murmur present... (III/), Systolic murmur present.. (III/; upper right sternal border) Neurologic: Oriented X3, Speech NL, No motor deficits, No sensory deficits, CN II - XII intact, Reflexes equal bilat NEURO: No facial droop or asymmetry Abdomen: Atraumatic, Soft, Non-tender, BS normoactive ABDOMEN: Midline surgical scar above the umbilicus Interpretation & Diagnostics Lab Results Interpretation Result Diagram: 03/14/17 1640 03/14/17 1640 Test 03/14/17 16:40 White Blood Count 4.3th/mm3 (3.8-10.1) Red Blood Count 3.20mil/mm3 (3.90-5.20) Hemoglobin 8.3g/dL (12.0-15.6) Hematocrit 27.1% (35.0-46.0) Mean Corpuscular Volume 84.7fL (81-100) Mean Corpuscular Hemoglobin 25.9pg (27.0-35.0) Mean Corpuscular Hemoglobin Concent 30.6% (32.0-37.0) Red Cell Distribution Width 20.5% (12.3-15.4) Platelet Count 70bil/L (150-400) Neutrophils (%) (Auto) 78.0% (40-74) Lymphocytes (%) (Auto) 9.2% (14-46) Monocytes (%) (Auto) 9.9% (4-12) Eosinophils (%) (Auto) 2.5% (0-5) Basophils (%) (Auto) 0.2% (0-3) Sodium Level 132mEq/L (134-144) Potassium Level 5.0mEq/L (3.5-5.2) Chloride Level 96mEq/L (97-108) Carbon Dioxide Level 19mmol/L (18-29) Blood Urea Nitrogen 21mg/dL (8-27) Creatinine 0.93mg/dL (0.57-1.00) Estimat Glomerular Filtration Rate 86mL/min (>59) Glucose Level 402mg/dL (60-99) Calcium Level 9.8mg/dL (8.5-10.1) Magnesium Level 1.5mg/dL (1.6-2.6) Total Bilirubin 0.7mg/dL (0.0-1.2) Aspartate Amino Transf (AST/SGOT) 19U/L (0-50) Alanine Aminotransferase (ALT/SGPT) 18U/L (0-32) Alkaline Phosphatase 97U/L (25-165) Ammonia 126ug/dL (18-53) Troponin T < 0.010ug/L (0.0-0.011) Total Protein 6.1g/dL (6.4-8.4) Albumin 3.1g/dL (3.4-5.0) Hold Tavares Top Tube Received (Received) ECG Interpretation ECG Interpretation: Sinus Rhythm Rate 80 LVH old inferior infarct No acute ST changes Time: 14:27 Interpreted by: ED physician Normal ECG Interpretation: No change from prior ECGs (08/18/16) Re-Eval/Medical Decision Med Decision/Clinical Course Does not meet threshold for transusion, not symptomatic (other than transient dizziness) noted significant hyperglycemia, partially corrected with fluids and insulin in ED. Pt feels better. Primary care service contacted and will follow up tomorrow for management of diabetes. Ammonia is up, she is not clinically encephalopathinc and is on lactulose. Re-Evaluation/Progress #1: Time of Eval: 17:30 Patient Status: Condition improved Re-Evaluation/Progress Note: Patient is resting comfortably and dizziness has improved. BS upon recheck is 329 She is informed of her lab results and EKG results. Re-Evaluation/Progress #2: Time of Eval: 18:33 Patient Status: Condition improved Re-Evaluation/Progress Note: She is informed of the plan to follow up with PCP. All of the patient's questions about her diagnosis and treatment plan are addressed. She understands and agrees with the plan. Consultation : Referral / Consult Name: Zee Carrillo PA-C Consulted With: Primary care physician Call Returned at: 18:02 Anesthesiology Physician: Will see patient, Will see in office, Agrees with eval, Agrees with plan Counseled Regarding: Diagnosis, Lab results, Need for follow-up, When/why to return to ED Patient Discharge & Departure Impression: Primary Impression: Dizziness Additional Impression: Hyperglycemia due to type 2 diabetes mellitus Diabetes mellitus terminal system operator insulin use: without shelter use Qualified Code : E11.65 - Type 2 diabetes mellitus with hyperglycemia Disposition: Home Discharge Condition All VS Reviewed: Yes Condition: Stable Patient Instructions: Diabetic Hyperglycemia (ED), Dizziness (ED) Additional Instructions: Thank you for trusting us with your care this afternoon. Your emergency department evaluation today included interview, examination, lab work and EKG. Your results are reassuring that there is no immediate cause for concern at this time. Your glucose today is significantly elevated (400) and your hemoglobin is 8.3 L. We treated elevated blood sugar with IV fluids and insulin. We contacted your primary care service and they will be contacting you with further advice regarding control of blood sugars. Please continue to take your home medications as directed. Please return to the emergency department if you develop any new or worsening symptoms including any worsening dizziness, headache, fever, nausea, vomiting or signs of stoke. Referrals: Zechariah Restrepo MD (PCP) Scribe Attestation Portions of this note were transcribed by Juancarlos Hoang. I, Dr. Dominguez personally performed the history, physical exam and medical decision-making; I reviewed and confirmed the accuracy of the information in the transcribed note. Signed by: Kaylynn Ayala, 03/14/17 1835. Zechariah Restrepo MD, Donald L MD March 14, 2017 15:52 JUANCARLOS HOANG March 14, 2017 16:04
[2017-03-14] MEDS ORDERED: 0.9% Sodium Chloride 1,000 ML IV ONE (16:14)
[2017-03-14] MEDS ORDERED: Ondansetron 2 mg/mL 2 mL Inj IV PRN (16:15)
[2017-03-14] MEDS ORDERED: Insulin Human REGular-Omnicell 100 Unit/mL SUBQ ONE (16:15)
[2017-03-14 16:49] LABS: BASOPHILS % (AUTO) 0.2 % (0-3); EOSINOPHILS % (AUTO) 2.5 % (0-5); MONOCYTES % (AUTO) 9.9 % (4-12); Mean Corpuscular Hemoglobin 25.9 pg (27.0-35.0); Mean Corpuscular Volume 84.7 fL (81-100); Platelet Count 70 bil/L (150-400)
[2017-03-14 17:04] VITALS: BP 116/41; PULSE 79; RESP 18; O2SAT 100
[2017-03-14 17:06] LABS: TROPONIN T < 0.010 ug/L (0.0-0.011)
[2017-03-14 17:17] LABS: Magnesium 1.5 mg/dL (1.6-2.6)
[2017-03-14 18:51] VITALS: BP 110/50; PULSE 92; RESP 20; O2SAT 100
[2017-03-28] MEDS ORDERED: INSU3INS3 SUBQ (08:51)
[2017-04-11] MEDS ORDERED: INSU100I13 SUBQ (09:12)
== END 2017-03-14 19:00 | disposition home or self-care (01) ==
LOC: SED 14:39
DX: E11.65 Type 2 diabetes mellitus with hyperglycemia (principal); I10 Essential (primary) hypertension; D64.9 Anemia, unspecified; Z79.84 Long term (current) use of oral hypoglycemic drugs; Z88.1 Allergy status to other antibiotic agents; Z91.040 Latex allergy status; Z91.048 Other nonmedicinal substance allergy status
CPT/HCPCS: 36415; 80053; 82140; 82948; 83735; 84484; 85025; 93005; 96360; 99285; J1815; J7030